=== PATIENT | male | born 1940 | race Caucasian/White ===

== ENCOUNTER 2020-12-29 12:06 | Emergency (ER) | payer MEDICARE, OTHER ==
[2020-12-29 12:15] VITALS: BP 162/90; PULSE 85
--- NOTE | 2020-12-29 13:09 | EDM.PDOC ---
ED HPI GENERAL MEDICAL PROBLEM - General Chief Complaint: General Stated Complaint: RT SIDE PAIN Time Seen by Provider: 12/29/20 12:11 Source of Information: Reports: Patient History Limitations: Reports: No Limitations - History of Present Illness INITIAL COMMENTS - FREE TEXT/NARRATIVE: 80-year-old male presents to the emergency department with complaints of bilateral shoulder pain and bilateral hip girdle pain. He states that this has been going on for about a week or so. He denies any recent trauma or injury. He denies any increase in activity. Denies any recent fever, chills, nausea, vomiting, diarrhea. He cannot pinpoint when the pain started however he just knows it has been going on for about a week. He states he has pain noted to bilateral anterior shoulders and hip girdle. He states the pain is significantly worse first thing in the morning when he gets up out of bed. However he states that last night the pain was so significant that he woke at about 3:00 in the morning and was unable to go back to sleep. States that sitting in a recliner for long periods of time also worsens in the bilateral hip girdle pain. He denies the sharp shooting pain down the back of his legs he describes it as an achiness and stiffness. Also reports pain that radiates from his bilateral anterior shoulder down both arms to his fingertips. Denies any numbness or tingling. States that he has noticed that his right hand has become more stiff and swollen over the course of the past couple of days. It is difficult for him to fully extend his fingers or make a full fist due to the achiness and pain in his joints. He describes it as an arthritic type of pain in his right hand. He does carry a medical history of diabetes, high cholesterol, and corneal transplant x2. States he was in to see his primary care physician about 3 weeks ago for an annual visit however he states he mentioned some joint achiness at that time and she started him on meloxicam for which he states does not help all that much. He states he usually takes 4 Tylenol every morning and this does seem to help. Patient denies any new onset headache, abrupt onset of visual impairment, or jaw claudication. Arm Pain Score (Numeric/FACES): 6 - Related Data Allergies Allergy/AdvReac Type Severity Reaction Status Date / Time No Known Allergies Allergy Verified 12/29/20 12:15 Home Meds: Home Meds Albuterol [Ventolin HFA] 2 puff PO Q4HR PRN 12/29/20 [History] Ascorbate Calcium [Vitamin C] 1,000 mg PO DAILY 12/29/20 [History] Aspirin 81 mg PO DAILY 12/29/20 [History] Dapagliflozin Propanediol [Farxiga] 10 mg PO DAILY 12/29/20 [History] Diclofenac Sodium [Voltaren] 75 mg PO BIDMEALS #16 tab.cr 12/29/20 [Rx] Fluorometholone [Fluorometholone 0.1% Ophth Susp] 1 drop EYERT DAILY 12/29/20 [History] Fluticasone Propion/Salmeterol [Fluticasone-Salmeterol 100-50] 1 puff PO DAILY 0 12/29/20 [History] Meloxicam 15 mg PO DAILY PRN 12/29/20 [History] Omeprazole Magnesium [Prilosec Otc] 20 mg PO DAILY #16 tablet. 12/29/20 [Rx] Timolol Maleate/PF [Timolol Maleate 0.5% Eye Drop] 1 drop EYEBOTH BID 12/29/20 [History] Zinc 50 mg PO DAILY 12/29/20 [History] atorvaSTATin [Lipitor] 10 mg PO DAILY 12/29/20 [History] hydroCHLOROthiazide [Hydrochlorothiazide] 12.5 mg PO DAILY 12/29/20 [History] predniSONE [Prednisone] 10 mg PO DAILY #8 tablet 12/29/20 [Rx] Past Medical History Other HEENT History: corneal transplant Respiratory History: Reports: COPD Musculoskeletal History: Reports: Other (See Below) Other Musculoskeletal History: hip replacement Endocrine/Metabolic History: Reports: Diabetes, Type II Social & Family History - Tobacco Use Tobacco Use Status *Q: Former Tobacco User Years of Tobacco use: 30 Packs/Tins Daily: 1 Used Tobacco, but Quit: Yes Month/Year Tobacco Last Used: 08/1999 - Caffeine Use Caffeine Use: Reports: Coffee - Recreational Drug Use Recreational Drug Use: No ED ROS GENERAL - Review of Systems Review Of Systems: See Below Constitutional: Reports: Fatigue. Denies: Fever, Chills, Diaphoresis, Decreased Appetite HEENT: Reports: Glasses Respiratory: Reports: No Symptoms Cardiovascular: Reports: No Symptoms ED EXAM, GENERAL - Physical Exam Exam: See Below Exam Limited By: No Limitations General Appearance: Alert, WD/WN, No Apparent Distress Eye Exam: Right Eye: Other (recent corneal transplant in right eye one month ago) Ears: Normal External Exam, Hearing Grossly Normal Nose: Normal Inspection Throat/Mouth: Normal Inspection, Normal Lips, Normal Voice, No Airway Compromise Head: Atraumatic, Normocephalic Neck: Normal Inspection, Supple, Non-Tender, Full Range of Motion. No: Tender Lateral, Tender Midline Respiratory/Chest: No Respiratory Distress, Lungs Clear, Normal Breath Sounds, No Accessory Muscle Use, Chest Non-Tender Cardiovascular: Normal Peripheral Pulses, Regular Rate, Rhythm, No Edema, No Murmur Peripheral Pulses: 2+: Radial (L), Radial (R) GI/Abdominal: Normal Bowel Sounds, Soft, Non-Tender, No Distention (Male) Exam: Deferred Rectal (Males) Exam: Deferred Back Exam: Normal Inspection, Full Range of Motion Extremities: Non-Tender, Normal Capillary Refill. No: Normal Inspection (Right hand edema), Normal Range of Motion (Decreased range of motionactiveto bilateral upper extremities) Neurological: Alert, Oriented, Normal Cognition Psychiatric: Normal Affect, Normal Mood Skin Exam: Warm, Dry, Intact, Normal Color, No Rash Lymphatic: No Adenopathy Course - Vital Signs Text/Narrative:: Patient presents with a 1 week history of "achiness "to his bilateral shoulders and hip girdles. Also has radiation from the bilateral anterior shoulders down to the fingertips. Radiation from the bilateral hip girdles down the back of h is legs. Denies the radiation as a sharp shooting pain however describes it as a dull ache and stiffness. Worse in the mornings and eases up throughout the day however it never completely goes away. Patient also has noted swelling to his right hand over the course the past 2 days with increased stiffness. There is no erythema noted to the right hand however. Denies any history of gout. Denies any trauma or increased activity which would cause him to be sore and stiff. He states he does take a antilipid medication however he has been on this for several years and has never had issues with it causing him to have achy joints. Upon assessment the patient does have decreased active range of motion noted to bilateral upper extremities however passive range of motion is normal. I suspect the patient may have polymyalgia rheumatica. I discussed the case with Dr. Vizcarra and he agrees. I have ordered labs including anti-CCP, rheumatoid factor, C-reactive protein, sed rate, TSH, vitamin D, CBC and a CMP. Last Recorded V/S: Last Vital Signs Temp 97.1 F 12/29/20 12:14 Pulse 85 12/29/20 12:14 Resp 20 12/29/20 12:14 BP 162/90 H 12/29/20 12:14 Pulse Ox 95 12/29/20 12:14 - Orders/Labs/Meds Orders: Active Orders 24 hr Category Date Time Status CCP ANTIBODIES IGG/IGA [REF] Stat Lab 12/29/20 12:15 Received Labs: Laboratory Tests 12/29/20 12/29/20 12/29/20 Range/Units 12:15 12:15 12:15 WBC 11.00 H (4.23-9.07) K/mm3 RBC 4.71 (4.63-6.08) M/mm3 Hgb 14.3 (13.7-17.5) gm/dl Hct 45.7 (40.1-51.0) % MCV 97.0 H (79.0-92.2) fl MCH 30.4 (25.7-32.2) pg MCHC 31.3 L (32.2-35.5) g/dl RDW Std Deviation 46.5 H (35.1-43.9) fL Plt Count 325 (163-337) K/mm3 MPV 9.6 (9.4-12.3) fl Neut % (Auto) 77.5 H (34.0-67.9) % Lymph % (Auto) 10.5 L (21.8-53.1) % [place] % (Auto) 10.0 (5.3-12.2) % Eos % (Auto) 1.5 (0.8-7.0) Baso % (Auto) 0.1 (0.1-1.2) % Neut # (Auto) 8.53 H (1.78-5.38) K/mm3 Lymph # (Auto) 1.15 L (1.32-3.57) K/mm3 [place] # (Auto) 1.10 H (0.30-0.82) K/mm3 Eos # (Auto) 0.17 (0.04-0.54) K/mm3 Baso # (Auto) 0.01 (0.01-0.08) K/mm3 Manual Slide Review Normal smear ESR 34 H (0-15) mm/hr Sodium 140 (136-145) mEq/L Potassium 3.9 (3.5-5.1) mEq/L Chloride 103 (98-107) mEq/L Carbon Dioxide 26 (21-32) mEq/L Anion Gap 14.9 (5-15) BUN 20 H (7-18) mg/dL Creatinine 1.1 (0.7-1.3) mg/dL Est Cr Clr Drug Dosing 50.95 mL/min Estimated GFR (MDRD) > 60 (>60) mL/min BUN/Creatinine Ratio 18.2 H (14-18) Glucose 175 H (83-115) mg/dL Calcium 8.7 (8.5-10.1) mg/dL Magnesium 2.6 H (1.8-2.4) mg/dl Total Bilirubin 0.4 (0.2-1.0) mg/dL AST 15 (15-37) U/L ALT 17 (16-63) U/L Alkaline Phosphatase 85 (46-116) U/L Creatine Kinase 36 L (39-308) U/L C-Reactive Protein 8.8 H* (<1.0) mg/dL Total Protein 7.2 (6.4-8.2) g/dl Albumin 3.1 L (3.4-5.0) g/dl Globulin 4.1 gm/dL Albumin/Globulin Ratio 0.8 L (1-2) Vitamin D 25-Hydroxy 12.9 L (30.0-100.0) ng/ml TSH 3rd Generation 1.465 (0.358-3.74) uIU/mL Rheumatoid Factor Scrn (NEGATIVE) 12/29/20 Range/Units 12:15 WBC (4.23-9.07) K/mm3 RBC (4.63-6.08) M/mm3 Hgb (13.7-17.5) gm/dl Hct (40.1-51.0) % MCV (79.0-92.2) fl MCH (25.7-32.2) pg MCHC (32.2-35.5) g/dl RDW Std Deviation (35.1-43.9) fL Plt Count (163-337) K/mm3 MPV (9.4-12.3) fl Neut % (Auto) (34.0-67.9) % Lymph % (Auto) (21.8-53.1) % [place] % (Auto) (5.3-12.2) % Eos % (Auto) (0.8-7.0) Baso % (Auto) (0.1-1.2) % Neut # (Auto) (1.78-5.38) K/mm3 Lymph # (Auto) (1.32-3.57) K/mm3 [place] # (Auto) (0.30-0.82) K/mm3 Eos # (Auto) (0.04-0.54) K/mm3 Baso # (Auto) (0.01-0.08) K/mm3 Manual Slide Review ESR (0-15) mm/hr Sodium (136-145) mEq/L Potassium (3.5-5.1) mEq/L Chloride (98-107) mEq/L Carbon Dioxide (21-32) mEq/L Anion Gap (5-15) BUN (7-18) mg/dL Creatinine (0.7-1.3) mg/dL Est Cr Clr Drug Dosing mL/min Estimated GFR (MDRD) (>60) mL/min BUN/Creatinine Ratio (14-18) Glucose (83-115) mg/dL Calcium (8.5-10.1) mg/dL Magnesium (1.8-2.4) mg/dl Total Bilirubin (0.2-1.0) mg/dL AST (15-37) U/L ALT (16-63) U/L Alkaline Phosphatase (46-116) U/L Creatine Kinase (39-308) U/L C-Reactive Protein (<1.0) mg/dL Total Protein (6.4-8.2) g/dl Albumin (3.4-5.0) g/dl Globulin gm/dL Albumin/Globulin Ratio (1-2) Vitamin D 25-Hydroxy (30.0-100.0) ng/ml TSH 3rd Generation (0.358-3.74) uIU/mL Rheumatoid Factor Scrn Negative (NEGATIVE) Meds: Medications Discontinued Medications Generic Name Dose Route Start Last Admin Trade Name Freq PRN Reason Stop Dose Admin Prednisone 20 mg 12/29/20 14:57 12/29/20 15:11 Prednisone 20 Mg Tab PO 12/29/20 14:58 20 mg ONETIME ONE Administration - Re-Assessments/Exams Free Text/Narrative Re-Assessment/Exam: 12/29/20 15:14 Hematology reveals a WBC of 11.00, hemoglobin 14.3, hematocrit 45.7, platelet count 325, ESR 34, chemistry reveals a sodium of 140, potassium 3.9, carbon dioxide 26, anion gap 14.9, BUN 20, creatinine 1.1, glucose 175, calcium 8.7, magnesium 2.6, AST 15, ALT 17, CK 36, CRP 8.8, albumin 3.1, vitamin D 12.9, TSH 1.465, immunology reveals a rheumatoid factor screen negative, anti-CCP is pending. Lab work indicates that the patient likely does have PMR. Criteria per the up-to-date website recommends initiating of low-dose prednisone. Patient will be given 20 mg p.o. dose x1 now and then he will be started on 10 mg daily for 1 week. This is a recommended dose as patient does have a history of diabetes and per his recollection on his follow-up appointment with his primary care physician 3 weeks ago his A1c was greater than 8. I spoke to him at great length regarding the fact that the steroids will likely increase his blood sugars and strongly recommend that he adhere to a low carbohydrate diet with high-protein and high fat. I also recommend that he start checking his blood sugars more frequently and keep a log of this. He will need to take this log to his follow-up appointment with his primary care provider in 1 week. At this time she will need to reevaluate his ESR and CRP levels. He will be discharged home with prescription for prednisone,, Voltaren and Prilosec. He also has been made aware that its likely can take a couple of days for him to start feeling the effects of these medications. He is agreeable to this plan of care. Departure - Departure Time of Disposition: 15:16 Disposition: Home, Self-Care 01 Condition: Good Clinical Impression: Polymyalgia rheumatica - Discharge Information Prescriptions: predniSONE [Prednisone] 10 mg PO DAILY #8 tablet Omeprazole Magnesium [Prilosec Otc] 20 mg PO DAILY #16 tablet. Diclofenac Sodium [Voltaren] 75 mg PO BIDMEALS #16 tab.cr Referrals: Mare Kauffman MD [Primary Care Provider] - Forms: ED Department Discharge Additional Instructions: You were seen in the emergency department today with complaints of bilateral shoulder and hip girdle pain and swelling and stiffness to your right hand. Labs were completed today and it is likely that you have polymyalgia rheumatica as your inflammatory markers are all elevated and your rheumatoid factor was negative. You were given prednisone 20 mg while in the emergency department today. I have sent a prescription for prednisone 10 mg and you will need to take this daily for the next 8 days. This is the recommended treatment for this condition. Stop taking your meloxicam that was previously prescribed. I have sent prescription for Voltaren 75 mg. You will need to take this twice daily once with breakfast and once with supper. This is a strong anti-inflammatory and it will likely assist with the prednisone in relieving the inflammation and pain. While taking the Voltaren and prednisone you will need to take Prilosec once daily as well. This medication needs to be taken to prevent any ulcers in your stomach. I also would like you to keep a log of your blood sugars over the course of the next week. You will need to decrease your carbohydrate intake. You should be on a low carbohydrate high-protein high-fat diet to assist in decreasing your blood sugars. The prednisone will likely increase the blood sugars. Be sure to take this log to your follow-up appointment when you see Dr. Royal. I would like for you to see her at the very latest a week from tomorrow which would be January 06. She will need to repeat your lab tests. These tests would be your ESR and your CRP levels. You will likely need to be on prednisone over the course of the next 4 to 6 weeks. Should your condition worsen or change, do not hesitate returning to the emergency department. Sepsis Event Note (ED) - Evaluation Sepsis Screening Result: No Definite Risk - Focused Exam Vital Signs: Vital Signs Temp Pulse Resp BP Pulse Ox 12/29/20 12:14 97.1 F 85 20 162/90 H 95 - My Orders Last 24 Hours: My Active Orders 12/29/20 12:15 CCP ANTIBODIES IGG/IGA [REF] Stat - Assessment/Plan Last 24 Hours: My Active Orders 12/29/20 12:15 CCP ANTIBODIES IGG/IGA [REF] Stat
[2020-12-29 13:42] LABS: VITAMIN D,25-HYDROXY 12.9 ng/ml (30.0-100.0)
[2020-12-29] MEDS ORDERED: predniSONE 20 MG Tab PO ONE (14:57)
== END 2020-12-29 15:39 | disposition home or self-care (01) ==
LOC: JD.ED 12:06
DX: M35.3 Polymyalgia rheumatica (principal); J44.9 Chronic obstructive pulmonary disease, unspecified; E11.9 Type 2 diabetes mellitus without complications; Z79.82 Long term (current) use of aspirin; Z79.899 Other long term (current) drug therapy; Z87.891 Personal history of nicotine dependence
CPT/HCPCS: 36415; 80053; 82306; 82550; 83735; 84443; 85025; 85652; 86140; 86200; 86430; 99283; J7512

== ENCOUNTER 2021-06-18 17:19 | Emergency (ER) | payer MEDICARE, OTHER ==
[2021-06-18 18:25] VITALS: BP 141/79; PULSE 94
== END 2021-06-18 19:32 | disposition left against medical advice (07) ==
LOC: JD.ED 17:19
DX: Z53.21 Procedure and treatment not carried out due to patient leaving prior to being seen by health care provider (principal)